=== PATIENT | male | born 1960 | race Caucasian/White ===

== ENCOUNTER 2022-09-18 12:07 | Emergency (ER) | payer OTHER ==
[~2022-09-18] VITALS: Ht 188 cm; Wt 140.0 kg
[2022-09-18] VITALS (8 sets, daily range): BP systolic 142–148; BP diastolic 85–92
[2022-09-18] MEDS ORDERED: PAROXETINE10 MG PO (13:21)
[2022-09-18] MEDS ORDERED: METFORMIN500 M2 PO (13:21)
[2022-09-18] MEDS ORDERED: CRESTOR10 MG PO (13:21)
[2022-09-18] MEDS ORDERED: PROTONIX40 M2 PO (13:22)
[2022-09-18] MEDS ORDERED: DICLOFENAC SODI75 MG PO (13:22)
[2022-09-18] MEDS ORDERED: VOLTAREN3% GEL TOP (13:58)
[2022-09-18] MEDS ORDERED: PREDNISONE10 MG PO (13:58)
== END 2022-09-18 14:30 | disposition home or self-care (01) | DRG 556 ==
LOC: EDBD 12:07 → ED 12:07
DX: M25.562 Pain in left knee (principal)

== ENCOUNTER 2022-10-02 14:39 | Emergency (ER) | payer OTHER ==
[~2022-10-02] VITALS: Ht 188 cm; Wt 147.2 kg
[~2022-10-02 14:39] MED LIST: CRESTOR10 MG PO; DICLOFENAC SODI75 MG PO; METFORMIN500 M2 PO; PAROXETINE10 MG PO; PREDNISONE10 MG PO; PROTONIX40 M2 PO; VOLTAREN3% GEL TOP
[2022-10-02 14:51] VITALS: BP 144/81
[2022-10-02 15:00] VITALS: BP 134/77
[2022-10-02 15:15] VITALS: BP 139/88
[2022-10-02] MEDS ORDERED: CELEBREX100 M1 PO (15:20)
[2022-10-02 15:31] VITALS: BP 154/74
[2022-10-02 15:45] VITALS: BP 139/86
[2022-10-02 15:48] VITALS: BP 144/81
== END 2022-10-02 16:00 | disposition home or self-care (01) | DRG 556 ==
LOC: ED 14:39
DX: M25.562 Pain in left knee (principal)

== ENCOUNTER 2022-12-06 11:44 | Emergency (ER) | payer MEDICAID ==
[~2022-12-06] VITALS: Ht 188 cm; Wt 141.0 kg
[~2022-12-06 11:44] MED LIST changes: +CELEBREX100 M1 PO
[2022-12-06 12:17] VITALS: BP 147/85
[2022-12-06 14:08] VITALS: BP 147/85
[2022-12-06] MEDS ORDERED: SUDAFED CONGEST30 MG PO (14:14)
[2022-12-06] MEDS ORDERED: BENZONATATE200 MG PO (14:14)
[2022-12-06] MEDS ORDERED: PAXLOVID PO (14:14)
[2022-12-06] MEDS ORDERED: CODEINE/GUAIFEN1 SOL PO (14:14)
[2022-12-06] MEDS ORDERED: VENTOLIN HFA108 MCG PO (14:14)
== END 2022-12-06 14:25 | disposition home or self-care (01) ==
LOC: ED 11:44
DX: U07.1 COVID-19 (principal); R05.9 Cough, unspecified; R06.02 Shortness of breath; R53.83 Other fatigue; R52 Pain, unspecified; I10 Essential (primary) hypertension; G47.33 Obstructive sleep apnea (adult) (pediatric)

== ENCOUNTER 2024-11-01 11:13 | Emergency (ER) | payer MEDICARE ==
[~2024-11-01] VITALS: Ht 182.9 cm; Wt 136.0 kg
[~2024-11-01 11:13] MED LIST changes: +ASPIRIN325 MG PO; +BACTRIM DS1 TAB PO; +BENZONATATE200 MG PO; +CODEINE/GUAIFEN1 SOL PO; +COLACE100 MG PO; +KEFLEX500 MG PO; +LISINOPRIL2.5 MG PO; +OXYCODO-APAP1 TA2 PO; +PAXLOVID PO; +PROMETHAZINE HY25 M1; +SUDAFED CONGEST30 MG PO; +VENTOLIN HFA108 MCG PO
[2024-11-01 11:19] VITALS: BP 153/76
[2024-11-01] MEDS ORDERED: LIDOcaine HCl 1% (Local Anesth.) 20 ML VIAL STI STA (11:21)
[2024-11-01] MEDS ORDERED: POVIDONE IODINE 0.5 OZ/BTL TOP ONE (11:25)
[2024-11-01 11:30] VITALS: BP 151/80
[2024-11-01] MEDS ORDERED: BACTRIM DS1 TAB PO (11:49)
[2024-11-01 12:14] VITALS: BP 151/80
== END 2024-11-01 12:17 | disposition home or self-care (01) ==
LOC: ED 11:13
PROC: 0H9JXZZ Drainage of Left Upper Leg Skin, External Approach (ICD-10-PCS; principal; 2024-11-01)
DX: L02.416 Cutaneous abscess of left lower limb (principal); I10 Essential (primary) hypertension; R73.03 Prediabetes; Z79.84 Long term (current) use of oral hypoglycemic drugs